=== PATIENT | female | born 1975 | race Caucasian/White ===

== ENCOUNTER 2016-12-05 04:56 | Emergency (ER) | payer MEDICARE, MEDICAID ==
[2016-12-05 05:47] LABS: AMORPHOUS SEDIMENT,URINE TRACE /HPF; APPEARANCE,URINE SLIGHTLY-CLOUDY; BILIRUBIN,URINE NEGATIVE (NEGATIVE); CALCIUM OXALATE CRYSTALS,URINE TOO NUMEROUS TO CNT /HPF; GLUCOSE, URINE NEGATIVE (NEGATIVE); KETONES,URINE NEGATIVE (NEGATIVE); LEUKOCYTE ESTERASE,URINE TRACE (NEGATIVE); NITRITE,URINE POSITIVE (NEGATIVE); PROTEIN,URINE NEGATIVE (NEGATIVE); URINE SPECIFIC GRAVITY 1.005
[2016-12-05] MEDS ORDERED: HYDROCODONE/ACETAMINOPHEN 5-325 MG TABLET PO ONE (06:23)
--- NOTE | 2016-12-05 06:25 | ER Document Report ---
ED General - General Chief Complaint: Urinary Frequency Stated Complaint: URINATION PROBLEMS Time Seen by Provider: 12/05/16 05:58 Mode of Arrival: Ambulatory Information source: Patient Notes: 41-year-old female presents with complaints of right flank pain burning on urination, patient denies any fevers or chills nausea vomiting or diarrhea. Has had 2 similar episodes in the past few months TRAVEL OUTSIDE OF THE [place] IN LAST 30 DAYS: No - HPI Onset: Yesterday Onset/Duration: Persistent Quality of pain: Burning, Sharp Severity: Mild Pain Level: 1 Associated symptoms: Other Exacerbated by: Other - Urination Relieved by: Denies Similar symptoms previously: Yes Recently seen / treated by doctor: Yes - Related Data Allergies/Adverse Reactions: carbamazepine [From Tegretol] Allergy (Unknown, Verified 03/21/14 10:56) ibuprofen [Ibuprofen] Allergy (Unknown, Verified 03/21/14 10:56) latex [Latex] Allergy (Unknown, Verified 03/21/14 10:56) tramadol [Tramadol] Allergy (Unknown, Verified 03/21/14 10:56) ketorolac tromethamine [From Toradol] Allergy (Verified 08/22/14 12:42) olanzapine [From Zyprexa] Allergy (Verified 03/21/14 10:56) Past Medical History - Social History Smoking Status: Never Smoker Cigarette use (# per day): No Chew tobacco use (# tins/day): No Smoking Education Provided: No Family History: Reviewed & Not Pertinent Patient has suicidal ideation: No Patient has homicidal ideation: No - Past Medical History Cardiac Medical History: Reports: Hx Hypercholesterolemia, Hx Hypertension Pulmonary Medical History: Reports: Hx COPD Neurological Medical History: Reports: Hx Migraine Renal/ Medical History: Denies: Hx Peritoneal Dialysis GI Medical History: Reports: Hx Gastroesophageal Reflux Disease Musculoskeltal Medical History: Reports Hx Arthritis, Reports Hx Fibromyalgia Psychiatric Medical History: Reports: Hx Anxiety, Hx Bipolar Disorder, Hx Depression, Hx Schizophrenia Past Surgical History: Reports: Hx Orthopedic Surgery - FX L ANKLE X2, L WRIST, ALMOST EVERY FINGER pain, Hx Tubal Ligation - Immunizations Hx Diphtheria, Pertussis, Tetanus Vaccination: Yes Review of Systems - Review of Systems Notes: REVIEW OF SYSTEMS: CONSTITUTIONAL : Denies fever, chills, or sweats. Denies recent illness. EENT: Denies eye, ear, throat, or mouth pain or symptoms. Denies nasal or sinus congestion or discharge. Denies throat, tongue, or mouth swelling or difficulty swallowing. CARDIOVASCULAR: Denies chest pain. Denies palpitations or racing or irregular heart beat. Denies ankle edema. RESPIRATORY: Denies cough, cold, or chest congestion. Denies shortness of breath, difficulty breathing, or wheezing. GASTROINTESTINAL: Admits to right flank pain GENITOURINARY: Admits to burning on urination FEMALE GENITOURINARY: Denies vaginal bleeding, heavy or abnormal periods, irregular periods. Denies vaginal discharge or odor. MUSCULOSKELETAL: Denies back or neck pain or stiffness. Denies joint pain or swelling. SKIN: Denies rash, lesions or sores. HEMATOLOGIC : Denies easy bruising or bleeding. LYMPHATIC: Denies swollen, enlarged glands. NEUROLOGICAL: Denies confusion or altered mental status. Denies passing out or loss of consciousness. Denies dizziness or lightheadedness. Denies headache. Denies weakness or paralysis or loss of use of either side. Denies problems with gait or speech. Denies sensory loss, numbness, or tingling. Denies seizures. PHYSICAL EXAMINATION: GENERAL: Well-appearing, well-nourished and in no acute distress. HEAD: Atraumatic, normocephalic. EYES: Pupils equal round and reactive to light, extraocular movements intact, conjunctiva are normal. ENT: Nares patent, oropharynx clear without exudates. Moist mucous membranes. NECK: Normal range of motion, supple without lymphadenopathy LUNGS: Breath sounds clear to auscultation bilaterally and equal. No wheezes rales or rhonchi. HEART: Regular rate and rhythm without murmurs ABDOMEN: Soft, nontender, nondistended abdomen. No guarding, no rebound. No masses appreciated. On the right CVA tenderness Female : deferred Musculoskeletal: Normal range of motion, no pitting or edema. No cyanosis. NEUROLOGICAL: Cranial nerves grossly intact. Normal speech, normal gait. Normal sensory, motor exams PSYCH: Normal mood, normal affect. SKIN: Warm, Dry, normal turgor, no rashes or lesions noted. PSYCHIATRIC: Denies anxiety or stress. Denies depression, suicidal ideation, or homicidal ideation. ALL OTHER SYSTEMS REVIEWED AND NEGATIVE. Dictation was performed using [employer] voice recognition software Physical Exam - Vital signs Vitals: Temp Pulse Resp BP Pulse Ox 98 F 86 16 152/92 H 95 12/05/16 04:59 12/05/16 04:59 12/05/16 04:59 12/05/16 04:59 12/05/16 04:59 Course - Re-evaluation Re-evalutation: 12/05/16 06:25 Patient has positive nitrates consistent with a urinary tract infection however she also does have calcium oxalate crystals in her urine, a CT has been ordered to rule out an infected stone 12/05/16 06:53 CT noted no acute abnormalities, patient will be treated for urinary tract infection and is otherwise well-appearing and stable. She will be given urology follow-up After performing a Medical Screening Examination, I estimate there is LOW risk for ACUTE APPENDICITIS, BOWEL OBSTRUCTION, ACUTE CHOLECYSTITIS, PERFORATED DIVERTICULITIS, INCARCERATED HERNIA, PANCREATITIS, PELVIC INFLAMMATORY DISEASE, PERFORATED ULCER, ECTOPIC , or TUBO-OVARIAN ABSCESS, thus I consider the discharge disposition reasonable. Also, there is no evidence or peritonitis , sepsis, or toxicity. I have reevaluated this patient multiple times and no significant life threatening changes are noted. The patient and I have discussed the diagnosis and risks, and we agree with discharging home with close follow-up with the understanding that symptoms and presentations can change. We also discussed returning to the Emergency Department immediately if new or worsening symptoms occur. We have discussed the symptoms which are most concerning (e.g., bloody stool, fever, changing or worsening pain, vomiting) that necessitate immediate return. - Vital Signs Vital signs: Temp Pulse Resp BP Pulse Ox 98 F 86 16 152/92 H 95 12/05/16 04:59 12/05/16 04:59 12/05/16 04:59 12/05/16 04:59 12/05/16 04:59 - Laboratory Laboratory results interpreted by me: 12/05/16 05:05 Urine Nitrite POSITIVE H Urine Urobilinogen 4.0 H Ur Leukocyte Esterase TRACE H - Diagnostic Test Radiology reviewed: Image reviewed, Reports reviewed - no acute abnormaltiy, result given to patient Discharge - Discharge Clinical Impression: Flank pain UTI (urinary tract infection) Qualifiers: Urinary tract infection type: acute cystitis Hematuria presence: without hematuria Qualified Code(s): N30.00 - Acute cystitis without hematuria Condition: Stable Disposition: HOME, SELF-CARE Instructions: Abdominal Pain ([facility]), Urinary Tract Infection ([facility]) Prescriptions: Ciprofloxacin HCl [Cipro 500 mg Tablet] 500 mg PO BID #20 tablet Phenazopyridine HCl [Pyridium 100 Mg Tablet] 100 mg PO Q8 #9 tablet Referrals: MICHAEL GALEANO MD [Primary Care Provider] - Follow up as needed TAYLOR MANNING MD [ACTIVE STAFF] - Follow up tomorrow
--- NOTE | 2016-12-05 06:50 | RADIOLOGY REPORT (SQ) ---
EXAM DESCRIPTION: CT LTD RENAL STONE PROTOCOL ON COMPLETED DATE/TIME: 12/05/2016 6:35 am REASON FOR STUDY: urinary frequency COMPARISON: 8.18.15 TECHNIQUE: CT scan of the abdomen and pelvis performed without intravenous or oral contrast. Images reviewed with lung, soft tissue, and bone windows. Reconstructed coronal and sagittal MPR images revi ewed. All images stored on PACS. All CT scanners at this facility use dose modulation, iterative reconstruction, and/or weight based d osing when appropriate to reduce radiation dose to as low as reasonably achievable (ALARA). [facility]: Dose Right [facility]: CareDose [facility]: Dose Right [facility]: Teradose 4D [facility]: Smart Advice Wallet RADIATION DOSE: 321 LIMITATIONS: None. FINDINGS: The the LOWER CHEST: No significant findings. No nodules or infiltrates. NON-CONTRASTED LIVER, SPLEEN, ADRENALS: Evaluation limited by lack of IV contrast. No identified sign ificant masses. PANCREAS: No masses. No peripancreatic inflammatory changes. GALLBLADDER: No identified stones by CT criteria. No inflammatory changes to suggest cholecystitis. RIGHT KIDNEY AND URETER: No suspicious masses. Assessment limited by lack of IV contrast. No signif icant calcifications. No hydronephrosis or hydroureter. LEFT KIDNEY AND URETER: No suspicious masses. Assessment limited by lack of IV contrast. No signifi cant calcifications. No hydronephrosis or hydroureter. AORTA AND RETROPERITONEUM: No aneurysm. No retroperitoneal masses or adenopathy. BOWEL AND PERITONEAL CAVITY: No obvious masses or inflammatory changes. No free fluid. Moderate colo cristy stool retention. APPENDIX: Normal. PELVIS, BLADDER, AND ABDOMINAL WALL:No abnormal masses. No free fluid. Bladder normal. BONES: Mild disc desiccation. OTHER: No other significant finding. IMPRESSION: No acute findings. TECHNICAL DOCUMENTATION: JOB ID: [id number] Quality ID # [id number]: Final reports with documentation of one or more dose reduction techniques (e.g., Au tomated exposure control, adjustment of the mA and/or kV according to patient size, use of iterative reconstruction technique) 2010 [employer]- All Rights Reserved
[2016-12-05 07:15] VITALS: BP 132/89
== END 2016-12-05 07:13 | disposition home or self-care (01) ==
LOC: ER 04:56
DX: N30.00 Acute cystitis without hematuria (principal); R10.9 Unspecified abdominal pain; R30.0 Dysuria; I10 Essential (primary) hypertension; J44.9 Chronic obstructive pulmonary disease, unspecified; Z88.6 Allergy status to analgesic agent; Z91.040 Latex allergy status; Z88.5 Allergy status to narcotic agent; Z88.8 Allergy status to other drugs, medicaments and biological substances
CPT/HCPCS: 99284; 81025; 81001; 76380; A9270

== ENCOUNTER → 2017-02-03 | Outpatient (CLI) | payer MEDICARE, MEDICAID ==
--- NOTE | 2017-02-03 15:47 | RADIOLOGY REPORT (SQ) ---
EXAM DESCRIPTION: T SPINE AP/LAT COMPLETED DATE/TIME: 02/03/2017 2:34 pm REASON FOR STUDY: PAIN IN THORACIC SPINE (M54.6) M54.6 PAIN IN THORACIC SPINE COMPARISON: None. NUMBER OF VIEWS: Two views. TECHNIQUE: AP and lateral radiographic images acquired of the thoracic spine. LIMITATIONS: None. FINDINGS: MINERALIZATION: Normal. ALIGNMENT: Normal. No scoliosis. VERTEBRAE: No fracture or bone lesion. Maintained height, normal segmentation. DISCS: No significant loss of height or significant narrowing. No large osteophytes. HARDWARE: None in the spine. MEDIASTINUM AND SOFT TISSUES: Normal heart size and aortic contour. No soft tissue abnormality. VISUALIZED LUNG SIMEON: Clear. OTHER: No other significant finding. IMPRESSION: NO SIGNIFICANT RADIOGRAPHIC FINDING IN THE THORACIC SPINE. TECHNICAL DOCUMENTATION: JOB ID: [id number] [employer]- All Rights Reserved
== END ==
LOC: RAD 14:08
PROVIDERS: ATTEND Family Medicine
DX: M54.6 Pain in thoracic spine (principal)
CPT/HCPCS: 72070

== ENCOUNTER 2017-10-07 14:11 | Emergency (ER) | payer MEDICARE, MEDICAID ==
[2017-10-07 14:53] LABS: ABSOLUTE BASOPHILS # (AUTO) 0.1 10^3/uL (0.0-0.2); ABSOLUTE EOSINOPHILS # (AUTO) 0.1 10^3/uL (0.0-0.6); ABSOLUTE LYMPHOCYTES (AUTO) 1.5 10^3/uL (0.5-4.7); ABSOLUTE MONOCYTES (AUTO) 0.4 10^3/uL (0.1-1.4); ABSOLUTE NEUT (AUTO) 5.5 10^3/uL (1.7-8.2); BASOPHILS % (AUTO) 0.8 % (0-2); EOSINOPHILS % (AUTO) 0.8 % (0-6); HEMOGLOBIN 13.6 g/dL (12.0-15.5); LYMPHOCYTES % (AUTO) 19.6 % (13-45); MEAN CORPUSCULAR HEMOGLOBIN 29.1 pg (27.0-33.4); MEAN CORPUSCULAR HGB CONC 33.9 g/dL (32.0-36.0); MEAN CORPUSCULAR VOLUME 86 fl (80-97); MONOCYTES % (AUTO) 5.9 % (3-13); PLATELET COUNT 282 10^3/uL (150-450); RED BLOOD COUNT 4.67 10^6/uL (3.72-5.28); RED CELL DISTRIBUTION WIDTH 14.1 % (11.5-14.0); SEGMENTED NEUTROPHILS % (AUTO) 72.9 % (42-78); TOTAL CELLS COUNTED % (AUTO) 100 %; WHITE BLOOD COUNT 7.5 10^3/uL (4.0-10.5)
[2017-10-07 15:04] LABS: ALANINE AMINOTRANSFERASE 18 U/L (9-52); ALKALINE PHOSPHATASE 72 U/L (38-126); ANION GAP 11 (5-19); ASPARTATE AMINO TRANSFERASE 16 U/L (14-36); BILIRUBIN,DIRECT 0.1 mg/dL (0.0-0.4); BILIRUBIN,TOTAL 0.4 mg/dL (0.2-1.3); BLOOD UREA NITROGEN 7 mg/dL (7-20); CALCIUM 9.8 mg/dL (8.4-10.2); CARBON DIOXIDE 28 mmol/L (22-30); CHLORIDE 104 mmol/L (98-107); GLUCOSE 104 mg/dL (75-110); TOTAL PROTEIN 6.7 g/dL (6.3-8.2)
--- NOTE | 2017-10-07 15:11 | EKG REPORT ---
SEVERITY:- ABNORMAL ECG - SINUS TACHYCARDIA CONSIDER ANTEROSEPTAL INFARCT NONSPECIFIC T ABNORMALITIES, ANT-LAT LEADS : Confirmed by: Ryan Serrano MD 07-Oct-2017 15:10:31
--- NOTE | 2017-10-07 15:32 | ER Document Report ---
ED Syncope and Near Syncope - General Chief Complaint: Syncope Stated Complaint: SYNCOPE Time Seen by Provider: 10/07/17 14:20 Notes: The patient is a 42-year-old female, past medical history bipolar, presents after she cannot remember the past 2 days. She thinks she had a syncopal episode this morning because the heard a thump in the bedroom. She was initially confused when EMS arrived, but she is back to baseline on exam. During my exam, she began to have mild right upper chest pressure. Patient denies headache, shortness of breath, nausea, vomiting, back pain, leg swelling , hemoptysis, OCP use, fevers, numbness, tingling or epistaxis. TRAVEL OUTSIDE OF THE [place] IN LAST 30 DAYS: No - Related Data Allergies/Adverse Reactions: carbamazepine [From Tegretol] Allergy (Unknown, Verified 03/21/14 10:56) ibuprofen [Ibuprofen] Allergy (Unknown, Verified 03/21/14 10:56) latex [Latex] Allergy (Unknown, Verified 03/21/14 10:56) tramadol [Tramadol] Allergy (Unknown, Verified 03/21/14 10:56) ketorolac tromethamine [From Toradol] Allergy (Verified 08/22/14 12:42) olanzapine [From Zyprexa] Allergy (Verified 03/21/14 10:56) Past Medical History - General Information source: Patient - Social History Smoking Status: Unknown if Ever Smoked Family History: Reviewed & Not Pertinent - Past Medical History Cardiac Medical History: Reports: Hx Hypercholesterolemia, Hx Hypertension Pulmonary Medical History: Reports: Hx COPD Neurological Medical History: Reports: Hx Migraine Renal/ Medical History: Denies: Hx Peritoneal Dialysis GI Medical History: Reports: Hx Gastroesophageal Reflux Disease Musculoskeltal Medical History: Reports Hx Arthritis, Reports Hx Fibromyalgia Psychiatric Medical History: Reports: Hx Anxiety, Hx Bipolar Disorder, Hx Depression, Hx Schizophrenia Past Surgical History: Reports: Hx Orthopedic Surgery - FX L ANKLE X2, L WRIST, ALMOST EVERY FINGER pain, Hx Tubal Ligation - Immunizations Hx Diphtheria, Pertussis, Tetanus Vaccination: Yes Review of Systems - Review of Systems Notes: REVIEW OF SYSTEMS: CONSTITUTIONAL: -fevers, -chills EENT: -eye pain, -difficulty swallowing, -nasal congestion CARDIOVASCULAR: +chest pain, +syncope. RESPIRATORY: -cough, -SOB GASTROINTESTINAL: -abdominal pain, -nausea, -vomiting, -diarrhea GENITOURINARY: -dysuria, -hematuria MUSCULOSKELETAL: -back pain, -neck pain SKIN: -rash or skin lesions. HEMATOLOGIC: -easy bruising or bleeding. LYMPHATIC: -swollen, enlarged glands. NEUROLOGICAL: -altered mental status or loss of consciousness, -headache, - neurologic symptoms PSYCHIATRIC: -anxiety, -depression. ALL OTHER SYSTEMS REVIEWED AND NEGATIVE. Physical Exam - Vital signs Vitals: Temp Resp Pulse Ox 98.7 F 26 H 97 10/07/17 15:29 10/07/17 15:29 10/07/17 15:29 - Notes Notes: PHYSICAL EXAMINATION: GENERAL: Well-appearing, well-nourished and in no acute distress. HEAD: Atraumatic, normocephalic. EYES: Pupils equal round and reactive to light, extraocular movements intact, sclera anicteric, conjunctiva are normal. ENT: nares patent, oropharynx clear without exudates. Moist mucous membranes. NECK: Normal range of motion, supple without lymphadenopathy LUNGS: Breath sounds clear to auscultation bilaterally and equal. No wheezes rales or rhonchi. HEART: Tachycardia, regular rhythm. ABDOMEN: Soft, nontender, normoactive bowel sounds. No guarding, no rebound. No masses appreciated. EXTREMITIES: Normal range of motion, no pitting or edema. No cyanosis. NEUROLOGICAL: Cranial nerves grossly intact. Normal speech, normal gait. Normal sensory and motor exams. PSYCH: Normal mood, normal affect. SKIN: Warm, Dry, normal turgor, no rashes or lesions noted. Course - Re-evaluation Re-evalutation: Patient appears well. With her tachycardia, mild tachypnea and syncope, she is low to moderate risk for PE. D-dimer was positive, but CTA did not show evidence of a PE. After IV fluids, her tachycardia resolved. Blood work is unremarkable and she is low risk for syncope using the [place] Syncope Rules. Instructed her to stay hydrated and follow-up with her primary care physician. Unsure if there is any seizure activity, as these episodes are unwitnessed, but gave her follow-up with neurology for further evaluation. No arrhythmias seen while she was on the monitor in the ER. Given very strict return precautions and she understands per - Vital Signs Vital signs: Temp Pulse Resp BP Pulse Ox 98.7 F 27 H 138/103 H 98 04/14/18 15:29 10/07/17 16:31 10/07/17 16:31 10/07/17 16:31 - Laboratory Result Diagrams: 10/07/17 14:35 10/07/17 14:35 Laboratory results interpreted by me: 10/07/17 10/07/17 14:35 14:35 RDW 14.1 H D-Dimer 0.66 H - Diagnostic Test Radiology reviewed: Image reviewed, Reports reviewed Radiology results interpreted by me: CTA Chest: No PE. - EKG Interpretation by Me EKG shows normal: Sinus rhythm, [place], Intervals, QRS Complexes, ST-T Waves Rate: Tachycardia Discharge - Discharge Clinical Impression: Syncope Qualifiers: Syncope type: unspecified Qualified Code(s): R55 - Syncope and collapse Condition: Stable Disposition: HOME, SELF-CARE Additional Instructions: SYNCOPAL EPISODE: Syncope (fainting or near-fainting) can occur from many different health problems. Or it can be a simple fainting spell requiring no treatment. It is safe for you to go home, but further evaluation will likely be necessary. Your work-up may include tests for internal bleeding, heart disease, medication problems, or near-strokes. Tests are not always required, however, depending on the nature of your problem. The warning signs of an impending faint include: dizziness, lightheadedness , nausea, hot flashes, tingling, and weakness. If this happens, lay down and put your feet up, then wait until all of these symptoms have passed before standing up again. If these episodes become recurrent, or if you develop chest pain, heart palpitations, mental confusion, blurred vision, or headache, then you should call the physician, or go to the emergency room. ALTERED MENTAL STATUS: An altered mental status is a change in the normal functioning of the brain. This alteration of function can range from minor decreased brain function with some forgetfulness and confusion to complete loss of consciousness and coma. There are many possible causes of an altered mental status and include brain injuries such as trauma or strokes, problems with oxygen supply to the brain, fever and infections of the brain and/or elsewhere in the body, metabolic abnormalities such as low or high blood sugar, overdoses or excessive medication ingestion, and mental and psychiatric illnesses. Sometimes the altered mental status resolves and a definite cause is not determined. If a cause for your altered mental status was found, it has likely been corrected. Your evaluation has not shown any condition that requires that you be admitted to the hospital. It is believed that you are safe to lelave and return to your home. If you have a return of your symptoms, you should return for re-evaluation. NORMAL EXAM AND WORKUP: At this time, your examination and workup show no significant abnormality. No significant abnormal physical findings were noted. All laboratory, EKG, and imaging (x-ray, CT scans, ultrasound) studies that were ordered show no significant abnormality. Although your examination and all studies that were ordered showed no significant abnormal finding, there are no examinations and no studies that are 100% accurate. There is always the possibility that some abnormality could exist and not be detected with physical examination or within the limits and capabilities of laboratory and other studies. You should return or follow up as you were instructed on your visit today for further evaluation if your symptoms do not resolve. FOLLOW-UP CARE: If you have been referred to a physician for follow-up care, call the physician s office for an appointment as you were instructed or within the next two days. If you experience worsening or a significant change in your symptoms, notify the physician immediately or return to the Emergency Department at any time for re-evaluation. Forms: Elevated Blood Pressure Referrals: MICHAEL GALEANO MD [Primary Care Provider] - Follow up as needed NESHA LAW MD [NO LOCAL MD] - Follow up as needed
[2017-10-07] MEDS: NORMAL SALINE 1000 ML 1,000 ML IV PRN ×2 (16:16→16:17)
[2017-10-07 16:25] LABS: URINE AMPHETAMINES SCREEN NEGATIVE; URINE BARBITURATES SCREEN NEGATIVE; URINE BENZODIAZEPINES SCREEN NEGATIVE; URINE COCAINE SCREEN NEGATIVE; URINE MARIJUANA (THC) SCREEN NEGATIVE; URINE METHADONE SCREEN NEGATIVE; URINE PHENCYCLIDINE SCREEN NEGATIVE
--- NOTE | 2017-10-07 16:34 | RADIOLOGY REPORT (SQ) ---
EXAM DESCRIPTION: CTA CHEST COMPLETED DATE/TIME: 10/07/2017 4:03 pm REASON FOR STUDY: tachycardia, syncope, +D-dimer COMPARISON: Chest film 02/28/2011 TECHNIQUE: CT scan of the chest performed using helical scanning technique with dynamic intravenous contrast injection. Images reviewed with lung, soft tissue and bone windows. Reconstructed coronal and sagittal MPR images reviewed. Additional 3 dimensional post-processing performed to develop Maximal Intensity Projection images (AR P). All images stored on PACS. All CT scanners at this facility use dose modulation, iterative reconstruction, and/or weight based d osing when appropriate to reduce radiation dose to as low as reasonably achievable (ALARA). [facility]: Dose Right [facility]: CareDose [facility]: Dose Right [facility]: Teradose 4D [facility]: MoVoxx CONTRAST TYPE AND DOSE: contrast/concentration: Isovue 370.00 mg/ml; Total Contrast Delivered: 64.0 ml; Total Saline Delivered: 105.0 ml Contrast bolus optimized for the pulmonary arteries and aorta. RENAL FUNCTION: Creatinine 0.6 RADIATION DOSE: CT Rad equipment meets quality standard of care and radiation dose reduction techniq ues were employed. CTDIvol: 13.2 - 16.6 mGy. DLP: 578 mGy-cm. . LIMITATIONS: None. FINDINGS: LUNGS AND PLEURA: Trace bilateral pleural effusions are present. No pneumothorax. No dense consolidation worrisome for pneumonia. No gross alveolar or interstitial edema. AORTA AND GREAT VESSELS: No aneurysm. Contrast bolus not optimized for the aorta. HEART: No pericardial effusion. No significant coronary artery calcifications. PULMONARY ARTERIES: No emboli visualized in the main pulmonary arteries or the segmental branches. HILAR AND MEDIASTINAL STRUCTURES: No identified masses or abnormal nodes. HARDWARE: None in the chest. UPPER ABDOMEN: No significant findings. Limited exam. THYROID AND OTHER SOFT TISSUES: On axial image 46, a 1 cm breast nodule is present. Diagnostic outpa tient mammography is recommended for followup. BONES: No acute or significant finding. 3D MIPS: Confirm above findings. OTHER: No other significant finding. IMPRESSION: No CT angio evidence of acute pulmonary emboli or acute thoracic aortic dissection. At its Trace bilateral pleural effusions. COMMENT: Quality ID # [id number]: Final reports with documentation of one or more dose reduction techniques (e.g., Automated exposure control, adjustment of the mA and/or kV according to patient size, use of iterative reconstruction technique) TECHNICAL DOCUMENTATION: JOB ID: [id number] [employer]- All Rights Reserved Reading location - IP/workstation name: [email or web address]
--- NOTE | 2017-10-07 17:40 | EKG REPORT ---
SEVERITY:- ABNORMAL ECG - SINUS TACHYCARDIA NONSPECIFIC T ABNORMALITIES, LATERAL LEADS : Confirmed by: Ryan Serrano MD 07-Oct-2017 17:40:38
[2017-10-07 18:03] VITALS: BP 140/82
== END 2017-10-07 18:14 | disposition home or self-care (01) ==
LOC: ER 14:11
DX: R55 Syncope and collapse (principal); R41.0 Disorientation, unspecified; R07.89 Other chest pain; R00.0 Tachycardia, unspecified; R06.82 Tachypnea, not elsewhere classified; R79.89 Other specified abnormal findings of blood chemistry
CPT/HCPCS: 93005; 99285; 96360; 36415; 85025; 81025; 80053; 84484; 80307; 85379; 71275; 93010; J7030

== ENCOUNTER 2017-10-13 13:20 | Emergency (ER) | payer MEDICARE, MEDICAID ==
[2017-10-13] MEDS ORDERED: NORMAL SALINE 1000 ML 1,000 ML IV ONE (14:22)
[2017-10-13] MEDS ORDERED: LORAZEPAM INJ 2 MG/1 ML VIAL IV ONE (14:22)
--- NOTE | 2017-10-13 14:23 | ER Document Report ---
ED General - General Chief Complaint: Probable Seizure Stated Complaint: WEAKNESS Time Seen by Provider: 10/13/17 13:33 Notes: 42-year-old female to the emergency department for altered mental status. Family member/significant other present when she had what appeared to be a seizure. Had 2 seizures prior to EMS transporting. No seizure-like activity observed by EMS. No medications given. Of note patient was taken Topamax for several years but recently stopped it about a week ago. Has had at least 3 seizure-like activities since stopping. Was seen on Monday for the same but was subsequently discharged. Patient denies any pain at this time. Denies any other symptoms at this time. TRAVEL OUTSIDE OF THE [place] IN LAST 30 DAYS: No - HPI Onset: Just prior to arrival - Related Data Allergies/Adverse Reactions: carbamazepine [From Tegretol] Allergy (Unknown, Verified 03/21/14 10:56) ibuprofen [Ibuprofen] Allergy (Unknown, Verified 03/21/14 10:56) latex [Latex] Allergy (Unknown, Verified 03/21/14 10:56) tramadol [Tramadol] Allergy (Unknown, Verified 03/21/14 10:56) ketorolac tromethamine [From Toradol] Allergy (Verified 08/22/14 12:42) olanzapine [From Zyprexa] Allergy (Verified 03/21/14 10:56) Home Medications: risperdone, paliperidone, benztropine, topamax, cymbalta, prilosec Past Medical History - General Information source: Patient - Social History Smoking Status: Current Some Day Smoker Cigarette use (# per day): Yes Chew tobacco use (# tins/day): No Frequency of alcohol use: None Drug Abuse: None Lives with: Family Family History: Reviewed & Not Pertinent Patient has suicidal ideation: No Patient has homicidal ideation: No - Past Medical History Cardiac Medical History: Reports: Hx Hypercholesterolemia, Hx Hypertension Pulmonary Medical History: Reports: Hx COPD Neurological Medical History: Reports: Hx Migraine Renal/ Medical History: Denies: Hx Peritoneal Dialysis GI Medical History: Reports: Hx Gastroesophageal Reflux Disease Musculoskeltal Medical History: Reports Hx Arthritis, Reports Hx Fibromyalgia Psychiatric Medical History: Reports: Hx Anxiety, Hx Bipolar Disorder, Hx Depression, Hx Schizophrenia Past Surgical History: Reports: Hx Orthopedic Surgery - FX L ANKLE X2, L WRIST, ALMOST EVERY FINGER pain, Hx Tubal Ligation - Immunizations Hx Diphtheria, Pertussis, Tetanus Vaccination: Yes Review of Systems - Review of Systems Constitutional: No symptoms reported EENT: No symptoms reported Cardiovascular: No symptoms reported Respiratory: No symptoms reported Gastrointestinal: No symptoms reported Genitourinary: No symptoms reported Female Genitourinary: No symptoms reported Musculoskeletal: No symptoms reported Skin: No symptoms reported Hematologic/Lymphatic: No symptoms reported Neurological/Psychological: Confusion, Seizure, Headaches Physical Exam - Vital signs Vitals: Temp 97.8 F 10/13/17 13:20 Interpretation: Tachycardic - General General appearance: Appears well, Alert - HEENT Head: Normocephalic, Atraumatic Eyes: Normal Pupils: PERRL - Respiratory Respiratory status: No respiratory distress Chest status: Nontender Breath sounds: Normal Chest palpation: Normal - Cardiovascular Rhythm: Tachycardia Heart sounds: Normal auscultation Murmur: No - Abdominal Inspection: Normal Distension: No distension Bowel sounds: Normal Tenderness: Nontender Organomegaly: No organomegaly - Back Back: Normal, Nontender - Extremities General upper extremity: Normal inspection, Nontender, Normal color, Normal ROM , Normal temperature General lower extremity: Normal inspection, Nontender, Normal color, Normal ROM , Normal temperature, Normal weight bearing. No: Mariana's sign - Neurological Neuro grossly intact: Yes Cognition: Normal Orientation: AAOx4 [place] Coma Scale Eye Opening: Spontaneous Leslie Coma Scale Verbal: Oriented [place] Coma Scale Motor: Obeys Commands [place] Coma Scale Total: 15 Speech: Normal Motor strength normal: LUE, RUE, LLE, RLE Sensory: Normal - Psychological Associated symptoms: Normal affect, Normal mood - Skin Skin Temperature: Warm Skin Moisture: Dry Skin Color: Normal Course - Re-evaluation Re-evalutation: 10/13/17 14:38 Patient was seen on Monday and had conference a workup. More likely patient is suffering from some withdrawal seizures from stopping Topamax suddenly. Apparently patient was on Topamax for years. Will give her some Ativan right here. Will give some fluids, check head CT and reassess. 10/13/17 16:14 At this time patient's labs are fairly unremarkable. More likely did have a seizure. Have given her Topamax and Ativan here. Will prescribe her the same. I have encouraged her to follow back up with her regular doctor. Do not stop taking seizure medications (that was being used for her chronic migraines) abruptly as this can result in seizures. Family members have been educated as well. Will advise that she start taking the Topamax 50 mg twice a day and will cover her with some Ativan for the next 2 days as well. No drinking, no drug use, no driving. - Vital Signs Vital signs: Temp Pulse Resp BP Pulse Ox 97.8 F 20 109/94 H 98 10/13/17 13:20 10/13/17 13:29 10/13/17 13:28 10/13/17 13:29 - Laboratory Result Diagrams: 10/13/17 13:20 10/13/17 13:20 Laboratory results interpreted by me: 10/13/17 10/13/17 13:20 13:20 RDW 14.3 H Sodium 145.1 H Chloride 108 H Glucose 119 H Discharge - Discharge Clinical Impression: Seizure concurrent with and due to sedative withdrawal Condition: Good Disposition: HOME, SELF-CARE Instructions: New Seizure ([facility]) Additional Instructions: More than likely your symptoms of the result of stopping the Topamax to abruptly. Please continue with the Topamax and other medications as prescribed. Please follow-up with your regular doctor as soon as possible for repeat evaluation and treatment. No driving. No operating machinery. No alcohol or illicit drug use including marijuana. Prescriptions: Lorazepam [Ativan 1 mg Tablet] 1 mg PO BID 2 Days #4 tab Topiramate [Topamax] 50 mg PO BID 30 Days #60 tablet Referrals: MICHAEL GALEANO MD [Primary Care Provider] - Follow up as needed
[2017-10-13 14:35] LABS: ABSOLUTE BASOPHILS # (AUTO) 0.1 10^3/uL (0.0-0.2); ABSOLUTE EOSINOPHILS # (AUTO) 0.1 10^3/uL (0.0-0.6); ABSOLUTE LYMPHOCYTES (AUTO) 2.3 10^3/uL (0.5-4.7); ABSOLUTE MONOCYTES (AUTO) 0.4 10^3/uL (0.1-1.4); ABSOLUTE NEUT (AUTO) 5.6 10^3/uL (1.7-8.2); BASOPHILS % (AUTO) 0.9 % (0-2); EOSINOPHILS % (AUTO) 1.3 % (0-6); HEMATOCRIT 39.3 % (36.0-47.0); HEMOGLOBIN 13.2 g/dL (12.0-15.5); LYMPHOCYTES % (AUTO) 26.6 % (13-45); MEAN CORPUSCULAR HEMOGLOBIN 29.2 pg (27.0-33.4); MEAN CORPUSCULAR HGB CONC 33.6 g/dL (32.0-36.0); MEAN CORPUSCULAR VOLUME 87 fl (80-97); MONOCYTES % (AUTO) 5.2 % (3-13); PLATELET COUNT 312 10^3/uL (150-450); RED BLOOD COUNT 4.52 10^6/uL (3.72-5.28); RED CELL DISTRIBUTION WIDTH 14.3 % (11.5-14.0); TOTAL CELLS COUNTED % (AUTO) 100 %; WHITE BLOOD COUNT 8.6 10^3/uL (4.0-10.5)
[2017-10-13 14:43] LABS: ALANINE AMINOTRANSFERASE 21 U/L (9-52); ALBUMIN 3.8 g/dL (3.5-5.0); ALKALINE PHOSPHATASE 73 U/L (38-126); ANION GAP 10 (5-19); ASPARTATE AMINO TRANSFERASE 15 U/L (14-36); BILIRUBIN,DIRECT 0.3 mg/dL (0.0-0.4); BILIRUBIN,TOTAL 0.4 mg/dL (0.2-1.3); BLOOD UREA NITROGEN 7 mg/dL (7-20); CALCIUM 9.9 mg/dL (8.4-10.2); CARBON DIOXIDE 27 mmol/L (22-30); CHLORIDE 108 mmol/L (98-107); GLUCOSE 119 mg/dL (75-110); POTASSIUM 4.3 mmol/L (3.6-5.0); SODIUM 145.1 mmol/L (137-145); TOTAL PROTEIN 6.8 g/dL (6.3-8.2)
--- NOTE | 2017-10-13 14:59 | RADIOLOGY REPORT (SQ) ---
EXAM DESCRIPTION: CT HEAD WITHOUT COMPLETED DATE/TIME: 10/13/2017 2:50 pm REASON FOR STUDY: altered mental status COMPARISON: 02/10/2015. TECHNIQUE: Axial images acquired through the brain without intravenous contrast. Images reviewed wi th bone, brain and subdural windows. Additional sagittal and coronal reconstructions were generated. Images stored on PACS. All CT scanners at this facility use dose modulation, iterative reconstruction, and/or weight based d osing when appropriate to reduce radiation dose to as low as reasonably achievable (ALARA). [facility]: Dose Right [facility]: CareDose [facility]: Dose Right [facility]: Teradose 4D [facility]: SR Labs RADIATION DOSE: CT Rad equipment meets quality standard of care and radiation dose reduction techniq ues were employed. CTDIvol: 53.2 mGy. DLP: 991 mGy-cm. mGy. LIMITATIONS: None. FINDINGS: VENTRICLES: Normal size and contour. CEREBRUM: No masses. No hemorrhage. No midline shift. No evidence for acute infarction. Normal gra y/white matter differentiation. No areas of low density in the white matter. CEREBELLUM: No masses. No hemorrhage. No alteration of density. No evidence for acute infarction. EXTRAAXIAL SPACES: No fluid collections. No masses. ORBITS AND GLOBE: No intra- or extraconal masses. Normal contour of globe without masses. CALVARIUM: No fracture. PARANASAL SINUSES: No fluid or mucosal thickening. SOFT TISSUES: No mass or hematoma. OTHER: No other significant finding. IMPRESSION: NORMAL BRAIN CT WITHOUT CONTRAST. EVIDENCE OF ACUTE STROKE: NO. COMMENT: Quality ID # [id number]: Final reports with documentation of one or more dose reduction techniques (e.g., Automated exposure control, adjustment of the mA and/or kV according to patient size, use of iterative reconstruction technique) TECHNICAL DOCUMENTATION: JOB ID: [id number] [employer]- All Rights Reserved Reading location - IP/workstation name: [email or web address]
[2017-10-13 15:35] LABS: APPEARANCE,URINE CLEAR; BILIRUBIN,URINE NEGATIVE (NEGATIVE); COLOR,URINE YELLOW; GLUCOSE, URINE NEGATIVE (NEGATIVE); KETONES,URINE NEGATIVE (NEGATIVE); LEUKOCYTE ESTERASE,URINE NEGATIVE (NEGATIVE); NITRITE,URINE NEGATIVE (NEGATIVE); PROTEIN,URINE NEGATIVE (NEGATIVE); URINE SPECIFIC GRAVITY 1.006; UROBILINOGEN,URINE NEGATIVE mg/dL (<2.0)
[2017-10-13 15:48] LABS: URINE AMPHETAMINES SCREEN NEGATIVE; URINE BARBITURATES SCREEN NEGATIVE; URINE BENZODIAZEPINES SCREEN NEGATIVE; URINE COCAINE SCREEN NEGATIVE; URINE MARIJUANA (THC) SCREEN NEGATIVE; URINE METHADONE SCREEN NEGATIVE; URINE PHENCYCLIDINE SCREEN NEGATIVE
[2017-10-13] MEDS ORDERED: ACETAMINOPHEN 325 MG TABLET PO ONE (16:04)
[2017-10-13] MEDS ORDERED: TOPIRAMATE 25 MG TABLET PO ONE (16:05)
[2017-10-13] MEDS ORDERED: LORAZEPAM 1 MG TABLET PO ONE (16:31)
[2017-10-13 17:08] VITALS: BP 148/104
--- NOTE | 2017-10-13 21:26 | EKG REPORT ---
SEVERITY:- NORMAL ECG - SINUS RHYTHM : Confirmed by: Trang Miller 13-Oct-2017 21:26:06
== END 2017-10-13 16:48 | disposition home or self-care (01) ==
LOC: ER 13:20
DX: R56.9 Unspecified convulsions (principal); F13.239 Sedative, hypnotic or anxiolytic dependence with withdrawal, unspecified; R41.82 Altered mental status, unspecified; F17.210 Nicotine dependence, cigarettes, uncomplicated; E78.00 Pure hypercholesterolemia, unspecified; I10 Essential (primary) hypertension; J44.9 Chronic obstructive pulmonary disease, unspecified; Z91.040 Latex allergy status; Z88.6 Allergy status to analgesic agent; Z98.51 Tubal ligation status
CPT/HCPCS: 93005; 99285; 96361; 96374; 36415; 85025; 80053; 81001; 80307; 70450; 93010; A9270 ×3; J2060; J7030; J3490

== ENCOUNTER → 2017-11-03 | Outpatient (CLI) | payer MEDICARE, MEDICAID ==
--- NOTE | 2017-11-03 13:10 | RADIOLOGY REPORT (SQ) ---
EXAM DESCRIPTION: MRI CERVICAL SPINE WITHOUT COMPLETED DATE/TIME: 11/03/2017 12:40 pm REASON FOR STUDY: CERVICAL RADICULOPATHY (M54.12) M54.12 RADICULOPATHY, CERVICAL REGION COMPARISON: None. TECHNIQUE: Sagittal and Axial imaging includes T1, T2, STIR and gradient echo sequences. LIMITATIONS: Motion. FINDINGS: ALIGNMENT: Normal. VERTEBRAE: Intact. BONE MARROW: Normal. No marrow replacement or reactive changes. DISCS: Desiccation multiple levels. Disc space narrowing C5-6. HARDWARE: None in the spine. CORD AND BASE OF BRAIN: Normal in size and signal intensity. SOFT TISSUES: No soft tissue masses. C1-C2: No significant spinal stenosis. C2-C3: No significant spinal stenosis or exit foraminal stenosis. C3-C4: Disc bulge. Minimal narrowing of the spinal canal. C4-C5: Disc bulge. Minimal narrowing of the spinal canal. C5-C6: Mild spinal stenosis due to disc osteophyte complex. Moderate right and severe left neural fo raminal narrowing. C6-C7: No significant spinal stenosis or exit foraminal stenosis. C7-T1: No significant spinal stenosis or exit foraminal stenosis. UPPER THORACIC: Incompletely imaged. No significant spinal stenosis or exit foraminal stenosis. OTHER: No other significant finding. IMPRESSION: Mild spinal stenosis. Central disc herniation C5-6. TECHNICAL DOCUMENTATION: JOB ID: [id number]- All Rights Reserved Reading location - IP/workstation name: Unknown
== END ==
LOC: RAD 11:28
PROVIDERS: ATTEND Family Medicine
DX: M54.12 Radiculopathy, cervical region (principal); M48.02 Spinal stenosis, cervical region; M50.222 Other cervical disc displacement at C5-C6 level
CPT/HCPCS: 72141

== ENCOUNTER 2018-03-06 12:36 | Emergency (ER) | payer MEDICARE, MEDICAID | END 2018-03-06 13:56 | disposition left against medical advice (07) | LOC: ER 12:36 | DX: Z53.21 Procedure and treatment not carried out due to patient leaving prior to being seen by health care provider (principal); M79.89 Other specified soft tissue disorders ==

== ENCOUNTER → 2018-12-13 | Outpatient (CLI) | payer MEDICARE, MEDICAID ==
--- NOTE | 2018-12-13 14:17 | RADIOLOGY REPORT (SQ) ---
EXAM DESCRIPTION: NM HIDA SCAN WITH CCK COMPLETED DATE/TIME: 12/13/2018 1:47 pm REASON FOR STUDY: R10.11 RIGHT UPPER QUADRANT PAIN R10.11 RIGHT UPPER QUADRANT PAIN COMPARISON: None. RADIONUCLIDE AND DOSE: DOSAGE RADIONUCLIDE: 5 millicuries Tc99m Mebrofenin. DOSAGE CCK: 1.7 micrograms. DOSAGE MORPHINE: Not required. The route of agent administration: Intravenous TECHNIQUE: Serial imaging right upper quadrant up to 60 minutes following injection of radionuclide. CCK injected after gallbladder visualized. LIMITATIONS: None. FINDINGS: LIVER: Normal visualization without areas of photopenia. INTRAHEPATIC BILE DUCTS: Normal size and no delay in visualization. COMMON BILE DUCT: Normal without dilatation. GALLBLADDER: Normal visualization. Calculated ejection fraction of 64%. Normal range is greater th an 35%. PHYSICAL RESPONSE: Patients presenting complaint was reproduced. OTHER: No other significant finding. IMPRESSION: Normal gallbladder ejection fraction of 64%. Patient's symptoms were reproduced with th e CCK administration. TECHNICAL DOCUMENTATION: JOB ID: [id number] [employer]- All Rights Reserved Reading location - IP/workstation name: [email or web address]
== END ==
LOC: RAD 11:24
PROVIDERS: ATTEND Nurse Practitioner Primary Care
DX: R10.11 Right upper quadrant pain (principal)
CPT/HCPCS: 78227; J2805; A9537; Q9969

== ENCOUNTER → 2019-05-10 | Outpatient (CLI) | payer MEDICARE, MEDICAID ==
[2019-05-10 11:56] LABS: ABSOLUTE BASOPHILS # (AUTO) 0.1 10^3/uL (0.0-0.2); ABSOLUTE EOSINOPHILS # (AUTO) 0.2 10^3/uL (0.0-0.6); ABSOLUTE LYMPHOCYTES (AUTO) 3.1 10^3/uL (0.5-4.7); ABSOLUTE MONOCYTES (AUTO) 0.8 10^3/uL (0.1-1.4); ABSOLUTE NEUT (AUTO) 4.8 10^3/uL (1.7-8.2); BASOPHILS % (AUTO) 0.6 % (0-2); EOSINOPHILS % (AUTO) 2.1 % (0-6); HEMATOCRIT 45.1 % (36.0-47.0); HEMOGLOBIN 15.3 g/dL (12.0-15.5); LYMPHOCYTES % (AUTO) 34.4 % (13-45); MEAN CORPUSCULAR HEMOGLOBIN 30.6 pg (27.0-33.4); MEAN CORPUSCULAR HGB CONC 33.9 g/dL (32.0-36.0); MEAN CORPUSCULAR VOLUME 90 fl (80-97); MONOCYTES % (AUTO) 8.9 % (3-13); PLATELET COUNT 218 10^3/uL (150-450); RED BLOOD COUNT 4.99 10^6/uL (3.72-5.28); RED CELL DISTRIBUTION WIDTH 13.4 % (11.5-14.0); TOTAL CELLS COUNTED % (AUTO) 100 %; WHITE BLOOD COUNT 8.9 10^3/uL (4.0-10.5)
[2019-05-10 12:20] LABS: ALBUMIN 3.9 g/dL (3.5-5.0); ALKALINE PHOSPHATASE 62 U/L (38-126); ANION GAP 11 (5-19); ASPARTATE AMINO TRANSFERASE 22 U/L (14-36); BILIRUBIN,DIRECT 0.2 mg/dL (0.0-0.4); BILIRUBIN,TOTAL 0.3 mg/dL (0.2-1.3); BLOOD UREA NITROGEN 8 mg/dL (7-20); CALCIUM 9.8 mg/dL (8.4-10.2); CARBON DIOXIDE 20 mmol/L (22-30); CHLORIDE 115 mmol/L (98-107); GLUCOSE 123 mg/dL (75-110); POTASSIUM 3.8 mmol/L (3.6-5.0); TOTAL PROTEIN 6.8 g/dL (6.3-8.2)
== END ==
LOC: LAB 11:41
PROVIDERS: ATTEND Specialist/Technologist Athletic Trainer
DX: I10 Essential (primary) hypertension (principal)
CPT/HCPCS: 36415; 80053; 85025

== ENCOUNTER → 2019-08-07 | Outpatient (CLI) | payer MEDICARE, MEDICAID ==
[2019-08-07 10:51] LABS: ABSOLUTE BASOPHILS # (AUTO) 0.1 10^3/uL (0.0-0.2); ABSOLUTE EOSINOPHILS # (AUTO) 0.2 10^3/uL (0.0-0.6); ABSOLUTE LYMPHOCYTES (AUTO) 3.1 10^3/uL (0.5-4.7); ABSOLUTE MONOCYTES (AUTO) 0.6 10^3/uL (0.1-1.4); ABSOLUTE NEUT (AUTO) 4.9 10^3/uL (1.7-8.2); BASOPHILS % (AUTO) 0.7 % (0-2); EOSINOPHILS % (AUTO) 2.5 % (0-6); HEMATOCRIT 39.1 % (36.0-47.0); HEMOGLOBIN 13.5 g/dL (12.0-15.5); LYMPHOCYTES % (AUTO) 34.9 % (13-45); MEAN CORPUSCULAR HEMOGLOBIN 32.1 pg (27.0-33.4); MEAN CORPUSCULAR HGB CONC 34.4 g/dL (32.0-36.0); MEAN CORPUSCULAR VOLUME 93 fl (80-97); MONOCYTES % (AUTO) 7.2 % (3-13); PLATELET COUNT 329 10^3/uL (150-450); RED CELL DISTRIBUTION WIDTH 15.1 % (11.5-14.0); SEGMENTED NEUTROPHILS % (AUTO) 54.7 % (42-78); TOTAL CELLS COUNTED % (AUTO) 100 %; WHITE BLOOD COUNT 8.9 10^3/uL (4.0-10.5)
[2019-08-07 11:11] LABS: ALBUMIN 3.6 g/dL (3.5-5.0); ALKALINE PHOSPHATASE 51 U/L (38-126); ANION GAP 7 (5-19); ASPARTATE AMINO TRANSFERASE 17 U/L (14-36); BILIRUBIN,TOTAL 0.2 mg/dL (0.2-1.3); BLOOD UREA NITROGEN 8 mg/dL (7-20); CALCIUM 9.4 mg/dL (8.4-10.2); CARBON DIOXIDE 25 mmol/L (22-30); CHLORIDE 106 mmol/L (98-107); GLUCOSE 88 mg/dL (75-110)
== END ==
LOC: OD 10:01
PROVIDERS: ATTEND Orthopaedic Surgery Hand Surgery
DX: I10 Essential (primary) hypertension (principal)
CPT/HCPCS: 36415; 80053; 85025

== ENCOUNTER → 2019-12-26 | Outpatient (CLI) | payer MEDICARE, MEDICAID ==
[2019-12-26 14:18] LABS: ABSOLUTE EOSINOPHILS # (AUTO) 0.3 10^3/uL (0.0-0.6); ABSOLUTE LYMPHOCYTES (AUTO) 3.3 10^3/uL (0.5-4.7); ABSOLUTE MONOCYTES (AUTO) 0.7 10^3/uL (0.1-1.4); ABSOLUTE NEUT (AUTO) 5.9 10^3/uL (1.7-8.2); BASOPHILS % (AUTO) 0.4 % (0-2); EOSINOPHILS % (AUTO) 2.7 % (0-6); HEMATOCRIT 39.8 % (36.0-47.0); HEMOGLOBIN 13.8 g/dL (12.0-15.5); LYMPHOCYTES % (AUTO) 32.1 % (13-45); MEAN CORPUSCULAR HEMOGLOBIN 31.4 pg (27.0-33.4); MEAN CORPUSCULAR HGB CONC 34.6 g/dL (32.0-36.0); MEAN CORPUSCULAR VOLUME 91 fl (80-97); PLATELET COUNT 333 10^3/uL (150-450); RED BLOOD COUNT 4.39 10^6/uL (3.72-5.28); RED CELL DISTRIBUTION WIDTH 12.9 % (11.5-14.0); SEGMENTED NEUTROPHILS % (AUTO) 57.8 % (42-78); TOTAL CELLS COUNTED % (AUTO) 100 %; WHITE BLOOD COUNT 10.2 10^3/uL (4.0-10.5)
[2019-12-26 14:21] LABS: APPEARANCE,URINE SLIGHTLY-CLOUDY; BILIRUBIN,URINE NEGATIVE (NEGATIVE); COLOR,URINE STRAW; GLUCOSE, URINE NEGATIVE (NEGATIVE); KETONES,URINE NEGATIVE (NEGATIVE); LEUKOCYTE ESTERASE,URINE NEGATIVE (NEGATIVE); NITRITE,URINE NEGATIVE (NEGATIVE); PROTEIN,URINE NEGATIVE (NEGATIVE); URINE SPECIFIC GRAVITY 1.005; UROBILINOGEN,URINE NEGATIVE mg/dL (<2.0)
[2019-12-26 14:39] LABS: ALBUMIN 4.5 g/dL (3.5-5.0); ALKALINE PHOSPHATASE 78 U/L (38-126); ANION GAP 8 (5-19); ASPARTATE AMINO TRANSFERASE 19 U/L (14-36); BILIRUBIN,TOTAL 0.3 mg/dL (0.2-1.3); BLOOD UREA NITROGEN 11 mg/dL (7-20); CARBON DIOXIDE 23 mmol/L (22-30); CHLORIDE 106 mmol/L (98-107); GLUCOSE 110 mg/dL (75-110); POTASSIUM 4.9 mmol/L (3.6-5.0); TOTAL PROTEIN 7.3 g/dL (6.3-8.2); TRIGLYCERIDES 398 mg/dL (<150)
[2019-12-26 14:50] LABS: DIRECT LDL 209 mg/dL (<100)
[2019-12-26 14:51] LABS: VLDL CHOLESTEROL 79.6 mg/dL (10-31)
== END ==
LOC: OD 13:34
PROVIDERS: ATTEND Nurse Practitioner Psychiatric/Mental Health
DX: F25.0 Schizoaffective disorder, bipolar type (principal)
CPT/HCPCS: 36415; 80053; 80061; 81005; 82306; 83036; 84443; 85025

== ENCOUNTER 2020-05-28 07:43 | Day surgery (SDC) | payer MEDICARE, MEDICAID ==
[2020-05-25 13:15] LABS: HEMATOCRIT 41.2 % (36.0-47.0); HEMOGLOBIN 13.9 g/dL (12.0-15.5); MEAN CORPUSCULAR HEMOGLOBIN 29.6 pg (27.0-33.4); MEAN CORPUSCULAR HGB CONC 33.8 g/dL (32.0-36.0); MEAN CORPUSCULAR VOLUME 88 fl (80-97); PLATELET COUNT 492 10^3/uL (150-450); RED CELL DISTRIBUTION WIDTH 13.8 % (11.5-14.0); WHITE BLOOD COUNT 10.6 10^3/uL (4.0-10.5)
[2020-05-25 13:16] LABS: APPEARANCE,URINE SLIGHTLY-CLOUDY; BILIRUBIN,URINE NEGATIVE (NEGATIVE); COLOR,URINE YELLOW; GLUCOSE, URINE NEGATIVE (NEGATIVE); KETONES,URINE NEGATIVE (NEGATIVE); LEUKOCYTE ESTERASE,URINE LARGE (NEGATIVE); NITRITE,URINE POSITIVE (NEGATIVE); PROTEIN,URINE NEGATIVE (NEGATIVE); URINE SPECIFIC GRAVITY 1.009; UROBILINOGEN,URINE NEGATIVE mg/dL (<2.0)
[2020-05-25 13:36] LABS: ALBUMIN 4.3 g/dL (3.5-5.0); ALKALINE PHOSPHATASE 106 U/L (38-126); ANION GAP 10 (5-19); ASPARTATE AMINO TRANSFERASE 16 U/L (14-36); BILIRUBIN,DIRECT 0.2 mg/dL (0.0-0.4); BILIRUBIN,TOTAL 0.5 mg/dL (0.2-1.3); BLOOD UREA NITROGEN 8 mg/dL (7-20); CALCIUM 10.4 mg/dL (8.4-10.2); CARBON DIOXIDE 24 mmol/L (22-30); CHLORIDE 105 mmol/L (98-107); GLUCOSE 113 mg/dL (75-110); POTASSIUM 4.4 mmol/L (3.6-5.0); TOTAL PROTEIN 7.7 g/dL (6.3-8.2)
--- NOTE | 2020-05-25 14:09 | EKG REPORT ---
SEVERITY:- ABNORMAL ECG - SINUS TACHYCARDIA LEFT ATRIAL ABNORMALITY LEFT VENTRICULAR HYPERTROPHY : Confirmed by: Dontae Talavera MD 25-May-2020 14:08:58
--- NOTE | 2020-05-26 12:34 | RADIOLOGY REPORT (SQ) ---
EXAM DESCRIPTION: CHEST 2 VIEWS IMAGES COMPLETED DATE/TIME: 05/26/2020 11:42 am REASON FOR STUDY: PRE OP COMPARISON: 2010 EXAM PARAMETERS: NUMBER OF VIEWS: two views TECHNIQUE: Digital Frontal and Lateral radiographic views of the chest acquired. RADIATION DOSE: NA LIMITATIONS: none FINDINGS: LUNGS AND PLEURA: No opacities, masses or pneumothorax. No pleural effusion. MEDIASTINUM AND HILAR STRUCTURES: No masses or contour abnormalities. HEART AND VASCULAR STRUCTURES: Heart normal size. No evidence for failure. BONES: No acute findings. HARDWARE: None in the chest. OTHER: No other significant finding. IMPRESSION: NO ACUTE RADIOGRAPHIC FINDING IN THE CHEST. TECHNICAL DOCUMENTATION: JOB ID: [id number] [employer]- All Rights Reserved Reading location - IP/workstation name: [email or web address]
[~2020-05-28 07:43] MED LIST: CEFAZOLIN 1 GM/D5W RTU 1 GM/50 ML RTUPB IV PRN
[2020-05-28] MEDS ORDERED: CEFAZOLIN 1 GM/D5W RTU 1 GM/50 ML RTUPB IV ONE (08:24)
[2020-05-28] MEDS ORDERED: ESTROGENS,CONJUGATED 0.625 MG/1 GM 30 GM TUBE PV ONE (10:00)
[2020-05-28] MEDS ORDERED: LIDOCAINE 2% INJ-PF (20 MG/ML) 10 ML AMPUL ONE (10:29)
[2020-05-28] MEDS ORDERED: MIDAZOLAM 2 MG/2 ML INJ ONE (10:29)
[2020-05-28] MEDS ORDERED: FENTANYL CITRATE INJ/PF 100 MCG/2 ML AMPUL ONE (10:29)
[2020-05-28] MEDS ORDERED: ONDANSETRON HCL INJ/PF 4 MG/2 ML SDV ONE (10:30)
[2020-05-28] MEDS ORDERED: HYDROMORPHONE HCL INJ/PF 2 MG/ML AMPULE ONE (10:30)
[2020-05-28] MEDS ORDERED: PROPOFOL INJ 200 MG/20 ML VIAL IV ONE (10:30)
[2020-05-28] MEDS ORDERED: DEXAMETHASONE SOD PHOSPHATE INJ 4 MG/1 ML VIAL ONE (10:30)
[2020-05-28] MEDS ORDERED: BUPIVACAINE HCL 0.25% /EPINEPHRINE INJ/PF 30 ML SDV ONE (10:44)
[2020-05-28] MEDS ORDERED: ACETAMINOPHEN 325 MG TABLET PO PRN (13:16)
[2020-05-28] MEDS ORDERED: ACETAMINOPHEN 1,000 MG/100 ML RTUPB IV PRN (13:16)
[2020-05-28] MEDS ORDERED: PROMETHAZINE HCL INJ 25 MG/1 ML VIAL IV PRN (13:16)
[2020-05-28] MEDS ORDERED: OXYCODONE-ACETAMINOPHEN 5-325 MG TABLET PO PRN ×2 (13:16)
[2020-05-28] MEDS ORDERED: RINGERS SOLUTION,LACTATED 1,000 ML IV PRN (13:16)
[2020-05-28] MEDS ORDERED: MORPHINE SULFATE 10 MG/ML INJ IV PRN (13:16)
[2020-05-28] MEDS ORDERED: SIMETHICONE 80 MG TAB.CHEW PO PRN (13:16)
[2020-05-28] MEDS ORDERED: CEFTRIAXONE INJ 1000 MG VIAL IV SCH (13:30)
--- NOTE | 2020-05-28 13:56 | Operative Report ---
Operative Report DATE OF SURGERY: 05/28/20 PREOPERATIVE DIAGNOSIS: complete uterovaginal prolapse, anterior prolapse, stre ss urinary incontenence POSTOPERATIVE DIAGNOSIS: same OPERATION: transvaginal hysterectomy, uterosacral suspension, anterior repair and shameka sling placement SURGEON: MADIE CUNHA 1ST SILK SCREEN OPERATOR: ANNALEE DENNEY 2ND Jewelry Dipper: ED SAEED ANESTHESIA: GA TISSUE REMOVED OR ALTERED: uterus, cervix COMPLICATIONS: none ESTIMATED BLOOD LOSS: 100 cc INTRAOPERATIVE FINDINGS: postmenopausal uterus, grade 3 anterior uterovaginal prolapse PROCEDURE: Patient was taken to the operating room prepared and draped in normal sterile fashion a dorsal lithotomy position in [facility]. Placed in the posterior fourchette retractor was placed in the anterior fourchette. Cervix was grasped with a triple tooth tenaculum and injected circumferentially with 10 cc of lidocaine with epi. The cervix was then scored with a 10 blade ventral fashion so was dissected away from the uterus using Alvarenga's. The anterior cul-de-sac was entered sharply with the Mayos and the weighted speculum was replaced with a long weighted speculum. Anterior cul-de-sac was then also entered sharply. The uterosacral ligaments were then clamped and cut with Oscar clamps and Alvarenga scissors these pedicles were tied off with 2-0 Vicryl tagged with hemostats. The rest of the uterine artery was then ligated on both sides using the LigaSure. The uterus was flipped once we reached the fundus of the mucosa was ligated using the LigaSure specimen was completely freed. We swept the bowel back with sponge sticks were the fallopian tubes were not visible through the epiploica. A modified Gomez culdoplasty was performed with the 0 Vicryl runner in a pursestring fashion the vaginal mucosa was sutured. the angle of the vaginal cuff was then with pickups and the vaginal cuff was closed with an 0 Vicryl runner. The anterior repair was then begun with an grasping the anterior vaginal mucosa in the midline between 2 Allis clamps and the mucosa was injected with approximately 10 cc of bupivacaine with epi. The mucosa was then scored in the midline using a 15 blade and the mucosa was dissected away from the bladder with sharp dissection with Metzenbaums and blunt dissection as needed. . Once the sacral bone was palpated and the uterosacral ligament was located via palpation the anchor anchor sure device was deployed in the anchor sure was fixed to the apex of the anterior repair. The anterior repair was then completed with 4 bridge sutures of 2-0 Vicryl placed the vesico- vaginal mucosa. cyst vaginal mucosa was then trimmed. The defect was then closed with an 0 Vicryl runner. The mucosa was then grasped approximately 1- 1/2 cm below the urethral opening, and once again injected with approximately 5 cc of bupivacaine with epi. The mucosa was then dissected away from the urethra using Metzenbaums once the pubic bone was palpable, the pubic bone on the mons was then palpated and to function roth with a 15 blade were performed. A Shameka sling trocar was then placed in each puncture justin and hugging the pubic bone the trocar was introduced through into the vagina through the previously made defect. Cystoscopy was performed once the Arzate catheter was removed, and it was noted that there was no evidence of of bladder injury on cystoscopy and there was no evidence of trocar puncture through the bladder. The Shameka sling material was then placed on the ends of the trochars and the trochars were removed with gentle pressure through the previously made tract. The mesh was then trimmed just below the skin with a Chela clamp in place between the urethra and the mesh to ensure that there was no strangulation of the urethra. The vaginal mucosa was then closed using 2-0 Vicryl. the vagina was then inspected and Kerlix packing with Premarin cream on the end was placed within the vagina. Procedures were then concluded. All instruments were removed, patient was taken to recovery in stable condition sponge lap and needle counts were correct x2
[2020-05-28] MEDS ORDERED: CEFTRIAXONE 1 GM/D5W RTU 1 GM/50 ML RTUPB IV PRN (14:34)
[2020-05-28] MEDS: KETOROLAC TROMETHAMINE INJ/PF 30 MG/1 ML SDV IV SCH ×2 (15:00→21:24)
[2020-05-28] MEDS: HYDROXYZINE PAMOATE 25 MG CAPSULE PO SCH ×2 (15:00→18:08)
[2020-05-28] MEDS ORDERED: GLYCOPYRROLATE 1 MG/5 ML VIAL ONE (15:57)
[2020-05-28] MEDS ORDERED: KETOROLAC TROMETHAMINE 60 MG/2 ML SDV ONE (15:57)
[2020-05-28] MEDS ORDERED: NEOSTIGMINE METHYLSULFATE 10 MG/10 ML VIAL ONE (15:57)
[2020-05-28] MEDS ORDERED: BENZTROPINE MESYLATE 2 MG PO SCH (18:00)
[2020-05-28] MEDS ORDERED: TOPIRAMATE 25 MG TABLET PO SCH (18:00)
[2020-05-28] MEDS ORDERED: TOPIRAMATE 50 MG PO SCH (18:00)
[2020-05-28] MEDS ORDERED: DOCUSATE SODIUM 100 MG CAPSULE PO SCH (18:00)
[2020-05-28] MEDS ORDERED: BENZTROPINE MESYLATE 1 MG TABLET PO SCH (18:00)
[2020-05-28] MEDS ORDERED: FLUOXETINE HCL 20 MG CAPSULE PO SCH (18:00)
[2020-05-28] MEDS: IBUPROFEN 800 MG TABLET PO SCH ×2 (18:07→18:12)
[2020-05-28] MEDS ORDERED: RISPERIDONE 1 MG TABLET PO SCH (22:00)
[2020-05-28] MEDS ORDERED: RISPERIDONE 3 MG PO SCH (22:00)
[2020-05-29] MEDS ORDERED: LEVOTHYROXINE SODIUM 0.088 MG TABLET PO SCH (06:00)
[2020-05-29] MEDS ORDERED: PANTOPRAZOLE SODIUM 20 MG TABLET.DR PO SCH (06:00)
[2020-05-29 06:25] LABS: HEMATOCRIT 37.1 % (36.0-47.0); HEMOGLOBIN 12.1 g/dL (12.0-15.5); MEAN CORPUSCULAR HEMOGLOBIN 28.6 pg (27.0-33.4); MEAN CORPUSCULAR HGB CONC 32.6 g/dL (32.0-36.0); MEAN CORPUSCULAR VOLUME 88 fl (80-97); PLATELET COUNT 354 10^3/uL (150-450); RED BLOOD COUNT 4.23 10^6/uL (3.72-5.28); RED CELL DISTRIBUTION WIDTH 13.7 % (11.5-14.0); WHITE BLOOD COUNT 14.1 10^3/uL (4.0-10.5)
[2020-05-29] MEDS: KETOROLAC TROMETHAMINE INJ/PF 30 MG/1 ML SDV IV SCH (06:50)
[2020-05-29] MEDS: IBUPROFEN 800 MG TABLET PO SCH (06:51)
[2020-05-29] MEDS ORDERED: INFLUENZA QUAD (6MOS+) 2020-21 VAC 0.5 ML SYR IM ONE (08:00)
--- NOTE | 2020-05-29 08:04 | PDOC DISCHARGE SUMMARY ---
Impression - Admit/DC Date/PCP Admission Date/Primary Care Provider: MENDY YOUSSEF PA-C Discharge Date: 05/29/20 - Discharge Diagnosis (1) Uterovaginal prolapse, complete Is this a current diagnosis for this admission?: Yes (2) RADHA (stress urinary incontinence, female) Is this a current diagnosis for this admission?: Yes (3) Pelvic pain Is this a current diagnosis for this admission?: Yes - Assessment Summary: patient underwent TVH w/ USS Anterior repair and placement of Shameka sling. Has had an unremarkable postoperative course and is voiding without difficulty this AM. Ready for discharge home - Additional Information Resuscitation Status: Full Code Discharge Diet: As Tolerated Discharge Activity: Balance Activity w/Rest, No Lifting Over 10 Pounds, No Lifting/Push/Pulling, Pelvic Rest, No tub bath, Walk Frequently Referrals: MADIE CUNHA MD [ACTIVE STAFF] - 06/12/20 8:30 am (CALL THE OFFICE OF ANY QUESTIONS AND CONCERNS.) Prescriptions: Docusate Sodium [Colace 100 mg Capsule] 100 mg PO BID #60 capsule Ibuprofen [Motrin 800 mg Tablet] 800 mg PO Q8H #60 tablet Home Medications: Omeprazole [Prilosec] 20 mg PO DAILY 04/22/11 Topiramate [Topamax] 50 mg PO BID 30 Days #60 tablet 10/13/17 Albuterol Sulfate [Proair Hfa Inhalation Aerosol 8.5 gm Mdi] 2 puff IH Q4H PRN 05/28/20 Benztropine Mesylate [Cogentin 1 mg Tablet] 1 mg PO QID 05/28/20 Buspirone HCl [Buspar 10 mg Tablet] 10 mg PO TID 05/28/20 Fluoxetine HCl 10 mg PO DAILY 05/28/20 Hydrocodone/Acetaminophen [Zuni 10-325 mg Tablet] 1 tab PO QID 05/28/20 Hydroxyzine Pamoate [Vistaril 50 mg Capsule] 50 mg PO TID 05/28/20 Lamotrigine [Lamictal] 150 mg PO DAILY 05/28/20 Liothyronine Sodium [Cytomel] 5 mcg PO DAILY 05/28/20 Metoprolol Tartrate [Lopressor 25 mg Tablet] 25 mg PO BID 05/28/20 Mirtazapine 45 mg PO DAILY 05/28/20 Paliperidone [Invega 6 Mg Tab.Er] 6 mg PO BID 05/28/20 Risperidone [Risperdal 1 mg Tablet] 1 mg PO BID 05/28/20 Docusate Sodium [Colace 100 mg Capsule] 100 mg PO BID #60 capsule 05/29/20 Ibuprofen [Motrin 800 mg Tablet] 800 mg PO Q8H #60 tablet 05/29/20 Oxycodone HCl/Acetaminophen [Percocet 5-325 mg Tablet] 1 tab PO Q4HP PRN tablet 05/29/20 History of Present Illiness History of Present Illness: ALEXANDRA MAIN is a 45 year old female Physical Exam - Physical Exam Vital Signs: Temp Pulse Resp BP Pulse Ox 97.9 F 110 H 16 133/84 H 96 05/29/20 05:13 05/29/20 05:13 05/29/20 05:13 05/29/20 05:13 05/29/20 05:13 Intake & Output 05/28/20 05/29/20 05/30/20 06:59 06:59 06:59 Intake Total 2070 Output Total 1325 Balance 745 Weight 81 kg Results Laboratory Results: WBC 14.1 10^3/uL (4.0-10.5) H 05/29/20 06:00 RBC 4.23 10^6/uL (3.72-5.28) 05/29/20 06:00 Hgb 12.1 g/dL (12.0-15.5) 05/29/20 06:00 Hct 37.1 % (36.0-47.0) 05/29/20 06:00 MCV 88 fl (80-97) 05/29/20 06:00 MCH 28.6 pg (27.0-33.4) 05/29/20 06:00 MCHC 32.6 g/dL (32.0-36.0) 05/29/20 06:00 RDW 13.7 % (11.5-14.0) 05/29/20 06:00 Plt Count 354 10^3/uL (150-450) 05/29/20 06:00 Sodium 139.3 mmol/L (137-145) 05/25/20 12:13 Potassium 4.4 mmol/L (3.6-5.0) 05/25/20 12:13 Chloride 105 mmol/L (98-107) 05/25/20 12:13 Carbon Dioxide 24 mmol/L (22-30) 05/25/20 12:13 Anion Gap 10 (5-19) 05/25/20 12:13 BUN 8 mg/dL (7-20) 05/25/20 12:13 Creatinine 0.74 mg/dL (0.52-1.25) 05/25/20 12:13 Est GFR ( Amer) > 60 (>60) 05/25/20 12:13 Est GFR (MDRD) Non-Af > 60 (>60) 05/25/20 12:13 Glucose 113 mg/dL (75-110) H 05/25/20 12:13 Calcium 10.4 mg/dL (8.4-10.2) H 05/25/20 12:13 Total Bilirubin 0.5 mg/dL (0.2-1.3) 05/25/20 12:13 Direct Bilirubin 0.2 mg/dL (0.0-0.4) 05/25/20 12:13 Neonat Total Bilirubin Not Reportable 05/25/20 12:13 Neonat Direct Bilirubin Not Reportable 05/25/20 12:13 Neonat Indirect Bili Not Reportable 05/25/20 12:13 AST 16 U/L (14-36) 05/25/20 12:13 ALT 12 U/L (<35) 05/25/20 12:13 Alkaline Phosphatase 106 U/L (38-126) 05/25/20 12:13 Total Protein 7.7 g/dL (6.3-8.2) 05/25/20 12:13 Albumin 4.3 g/dL (3.5-5.0) 05/25/20 12:13 Urine Color YELLOW 05/25/20 12:24 Urine Appearance SLIGHTLY-CLOUDY 05/25/20 12:24 Urine pH 6.0 (5.0-9.0) 05/25/20 12:24 Ur Specific [place] 1.009 05/25/20 12:24 Urine Protein NEGATIVE mg/dL (NEGATIVE) 05/25/20 12:24 Urine Glucose (UA) NEGATIVE mg/dL (NEGATIVE) 05/25/20 12:24 Urine Ketones NEGATIVE mg/dL (NEGATIVE) 05/25/20 12:24 Urine Blood SMALL (NEGATIVE) H 05/25/20 12:24 Urine Nitrite POSITIVE (NEGATIVE) H 05/25/20 12:24 Urine Bilirubin NEGATIVE (NEGATIVE) 05/25/20 12:24 Urine Urobilinogen NEGATIVE mg/dL (<2.0) 05/25/20 12:24 Ur Leukocyte Esterase LARGE (NEGATIVE) H 05/25/20 12:24 Urine WBC (Auto) 31 /HPF 05/25/20 12:24 Urine RBC (Auto) 1 /HPF 05/25/20 12:24 U Hyaline Cast (Auto) 13 /LPF 05/25/20 12:24 Urine Bacteria (Auto) 3+ /HPF 05/25/20 12:24 Urine WBC Clumps FEW /HPF 05/25/20 12:24 Squamous Epi Cells Auto 3 /HPF 05/25/20 12:24 Urine Mucus (Auto) OCC /LPF 05/25/20 12:24 Urine Ascorbic Acid NEGATIVE (NEGATIVE) 05/25/20 12:24 Urine HCG, Qual NEGATIVE (NEGATIVE) 05/28/20 08:20 COVID-19 Source See comment 05/25/20 12:05 COVID-19 (LUCIEN) Not Detected (Not Detect) 05/25/20 12:05 Blood Type A NEGATIVE 05/25/20 12:13 Antibody Screen NEGATIVE 05/25/20 12:13 Impressions: Chest X-Ray 05/26/20 11:20 IMPRESSION: NO ACUTE RADIOGRAPHIC FINDING IN THE CHEST. Stroke Is this a Stroke Patient?: No Acute Heart Failure Is this a Heart Failure Patient?: No
[2020-05-29 08:16] VITALS: BP 145/87
[2020-05-29] MEDS ORDERED: LAMOTRIGINE 100 MG TABLET PO SCH (10:00)
[2020-05-29] MEDS ORDERED: OMEPRAZOLE 20 MG PO SCH (10:00)
[2020-05-29] MEDS ORDERED: PALIPERIDONE 9 MG PO SCH (10:00)
[2020-05-29] MEDS ORDERED: PALIPERIDONE 6 MG TAB.ER.24 PO SCH (10:00)
== END 2020-05-29 08:38 | disposition home or self-care (01) ==
LOC: OROUT 07:43 → 2N 13:55 → OROUT 05-29 08:38
PROVIDERS: ATTEND Obstetrics & Gynecology
DX: N81.3 Complete uterovaginal prolapse (principal); N39.3 Stress incontinence (female) (male); R10.2 Pelvic and perineal pain; N87.0 Mild cervical dysplasia; N72 Inflammatory disease of cervix uteri; N80.0 Endometriosis of uterus; J45.909 Unspecified asthma, uncomplicated; Z20.828 Contact with and (suspected) exposure to other viral communicable diseases; Z23 Encounter for immunization; E03.9 Hypothyroidism, unspecified; K21.9 Gastro-esophageal reflux disease without esophagitis; Z79.899 Other long term (current) drug therapy; Z98.51 Tubal ligation status; Z78.0 Asymptomatic menopausal state; Z79.890 Hormone replacement therapy; F17.210 Nicotine dependence, cigarettes, uncomplicated
CPT/HCPCS: 57283; 57240; 57288; 58260; 93005; 86900; 86901; 36415 ×2; 87086; 86850; 85027 ×2; 81025; 87088; 80053; 81001; 87186; 88307 ×2; 71046; 90686; 94799; 93010; 00944; G0008; C1758; C1781; U0003; J2250; A9270 ×9; J3490 ×3; J0690; J1100; J1885 ×3; J3010; J2710; J1170; J2405; J2704; C9803; 87635; 90471; 944

== ENCOUNTER 2020-07-04 17:04 | Emergency (ER) | payer MEDICARE, MEDICAID ==
--- NOTE | 2020-07-04 17:46 | ER Document Report ---
ED Medical Screen (RME) - General Chief Complaint: Other Stated Complaint: PROLAPSED BLADDER Time Seen by Provider: 07/04/20 17:32 Primary Care Provider: MENDY YOUSSEF PA-C [Primary Care Provider] - Follow up as needed TRAVEL OUTSIDE OF THE [place] IN LAST 30 DAYS: No - HPI Notes: Patient is a 45 y/o female who presents with vaginal pain and bleeding. Patient states she was diagnosed with bladder and uterine prolapse and had a total hysterectomy with bladder sling done on 05/28/2020. Patient states yesterday she began to experience vaginal bleeding and pain. She reports being able to feel a bulging mass in her vagina and believes her bladder may have re-prolapsed. - Related Data Allergies/Adverse Reactions: latex [Latex] Allergy (Unknown, Verified 05/28/20 08:22) Home Medications: Metoprolol. Benztropine. Risperidone. Liothyronine Past Medical History - Social History Chew tobacco use (# tins/day): No Frequency of alcohol use: None Drug Abuse: None Family history: Reviewed & Not Pertinent - Past Medical History Cardiac Medical History: Reports: Hx Hypercholesterolemia Denies: Hx Coronary Artery Disease, Hx Heart Attack, Hx Hypertension Pulmonary Medical History: Denies: Hx Asthma, Hx Bronchitis, Hx COPD, Hx Pneumonia Neurological Medical History: Reports: Hx Migraine, Hx Seizures. Denies: Hx Cerebrovascular Accident Renal/ Medical History: Denies: Hx Peritoneal Dialysis GI Medical History: Reports: Hx Gastroesophageal Reflux Disease Musculoskeltal Medical History: Denies Hx Arthritis, Reports Hx Fibromyalgia Psychiatric Medical History: Reports: Hx Anxiety, Hx Bipolar Disorder, Hx Depression, Hx Schizophrenia Past Surgical History: Reports: Hx Orthopedic Surgery - FX L ANKLE X2, L WRIST, ALMOST EVERY FINGER pain, Hx Tubal Ligation - Immunizations Hx Diphtheria, Pertussis, Tetanus Vaccination: Yes Physical Exam - Vital signs Vitals: Temp Pulse Resp BP Pulse Ox 98.1 F 94 18 118/75 97 07/04/20 17:11 07/04/20 17:11 07/04/20 17:11 07/04/20 17:11 07/04/20 17:11 Interpretation: Normal - General General appearance: Appears well - Abdominal Distension: No distension Tenderness: Tender Course - Re-evaluation Re-evalutation: 07/04/20 17:[address] Roy, [facility] on-call, concerning this patient. She recommends ordering a CBC, CMP and performing a sterile speculum exam. Dr. Roy agrees to see the patient once she is in a room. I have greeted and performed a rapid initial assessment of this patient. A comprehensive ED assessment and evaluation of the patient, analysis of test results and completion of medical decision making process will be conducted by an additional ED providers. - Vital Signs Vital signs: Temp Pulse Resp BP Pulse Ox 98.1 F 94 18 118/75 97 07/04/20 17:11 07/04/20 17:11 07/04/20 17:11 07/04/20 17:11 07/04/20 17:11 Doctor's Discharge - Discharge Referrals: MENDY YOUSSEF PA-C [Primary Care Provider] - Follow up as needed
[2020-07-04] MEDS ORDERED: OXYCODONE HCL IR 5 MG TABLET PO ONE (17:53)
[2020-07-04 18:18] LABS: APPEARANCE,URINE SLIGHTLY-CLOUDY; BILIRUBIN,URINE NEGATIVE (NEGATIVE); COLOR,URINE YELLOW; GLUCOSE, URINE NEGATIVE (NEGATIVE); KETONES,URINE NEGATIVE (NEGATIVE); LEUKOCYTE ESTERASE,URINE LARGE (NEGATIVE); NITRITE,URINE NEGATIVE (NEGATIVE); PROTEIN,URINE NEGATIVE (NEGATIVE); URINE SPECIFIC GRAVITY 1.006; UROBILINOGEN,URINE NEGATIVE mg/dL (<2.0)
[2020-07-04 18:20] LABS: ABSOLUTE BASOPHILS # (AUTO) 0.1 10^3/uL (0.0-0.2); ABSOLUTE EOSINOPHILS # (AUTO) 0.3 10^3/uL (0.0-0.6); ABSOLUTE MONOCYTES (AUTO) 0.6 10^3/uL (0.1-1.4); ABSOLUTE NEUT (AUTO) 4.8 10^3/uL (1.7-8.2); BASOPHILS % (AUTO) 0.8 % (0-2); EOSINOPHILS % (AUTO) 3.2 % (0-6); HEMATOCRIT 36.9 % (36.0-47.0); HEMOGLOBIN 12.6 g/dL (12.0-15.5); LYMPHOCYTES % (AUTO) 33.9 % (13-45); MEAN CORPUSCULAR HEMOGLOBIN 29.6 pg (27.0-33.4); MEAN CORPUSCULAR HGB CONC 34.2 g/dL (32.0-36.0); MEAN CORPUSCULAR VOLUME 87 fl (80-97); MONOCYTES % (AUTO) 6.6 % (3-13); PLATELET COUNT 281 10^3/uL (150-450); RED BLOOD COUNT 4.25 10^6/uL (3.72-5.28); RED CELL DISTRIBUTION WIDTH 14.8 % (11.5-14.0); SEGMENTED NEUTROPHILS % (AUTO) 55.5 % (42-78); TOTAL CELLS COUNTED % (AUTO) 100 %; WHITE BLOOD COUNT 8.7 10^3/uL (4.0-10.5)
[2020-07-04 18:35] LABS: ALBUMIN 3.8 g/dL (3.5-5.0); ALKALINE PHOSPHATASE 97 U/L (38-126); ASPARTATE AMINO TRANSFERASE 23 U/L (14-36); BILIRUBIN,DIRECT 0.2 mg/dL (0.0-0.4); BILIRUBIN,TOTAL 0.3 mg/dL (0.2-1.3); BLOOD UREA NITROGEN 6 mg/dL (7-20); CALCIUM 9.2 mg/dL (8.4-10.2); GLUCOSE 100 mg/dL (75-110); POTASSIUM 3.8 mmol/L (3.6-5.0); TOTAL PROTEIN 6.4 g/dL (6.3-8.2)
[2020-07-04 18:40] LABS: CARBON DIOXIDE 29 mmol/L (22-30); CHLORIDE 105 mmol/L (98-107)
[2020-07-04 18:41] LABS: ANION GAP 3 (5-19)
--- NOTE | 2020-07-04 20:31 | ER Document Report ---
ED GI/ - General Chief Complaint: Other Stated Complaint: PROLAPSED BLADDER Time Seen by Provider: 07/04/20 17:32 Primary Care Provider: MADIE CUNHA MD [ACTIVE STAFF] - Follow up in 3-5 days (Please call next week for an outpatient follow-up appointment.) MENDY YOUSSEF PA-C [Primary Care Provider] - Follow up as needed Mode of Arrival: Ambulatory Information source: Patient Notes: 45-year-old female past medical history significant for hypertension recent hysterectomy with bladder sling on May [address] Cunha. Patient states she started having vaginal bleeding and pain yesterday and felt a "bulge" in her vagina. States has pain medication at home but did not take any. Denies any nausea, vomiting, no COVID-19 exposure. States she did not follow-up with her [facility] after her surgery. Also states she lifted a heavy case of water a week ago. TRAVEL OUTSIDE OF THE [place] IN LAST 30 DAYS: No - Related Data Allergies/Adverse Reactions: latex [Latex] Allergy (Unknown, Verified 05/28/20 08:22) Home Medications: Metoprolol. Benztropine. Risperidone. Liothyronine Past Medical History - General Information source: Patient - Social History Smoking Status: Current Every Day Smoker Chew tobacco use (# tins/day): No Frequency of alcohol use: None Drug Abuse: None Family History: Reviewed & Not Pertinent Patient has homicidal ideation: No - Past Medical History Cardiac Medical History: Reports: Hx Hypercholesterolemia Denies: Hx Coronary Artery Disease, Hx Heart Attack, Hx Hypertension Pulmonary Medical History: Denies: Hx Asthma, Hx Bronchitis, Hx COPD, Hx Pneumonia Neurological Medical History: Reports: Hx Migraine, Hx Seizures. Denies: Hx Cerebrovascular Accident Renal/ Medical History: Denies: Hx Peritoneal Dialysis GI Medical History: Reports: Hx Gastroesophageal Reflux Disease Musculoskeletal Medical History: Denies Hx Arthritis, Reports Hx Fibromyalgia Psychiatric Medical History: Reports: Hx Anxiety, Hx Bipolar Disorder, Hx Depression, Hx Schizophrenia Past Surgical History: Reports: Hx Orthopedic Surgery - FX L ANKLE X2, L WRIST, ALMOST EVERY FINGER pain, Hx Tubal Ligation - Immunizations Hx Diphtheria, Pertussis, Tetanus Vaccination: Yes Review of Systems - Review of Systems Constitutional: No symptoms reported EENT: No symptoms reported Cardiovascular: No symptoms reported Respiratory: No symptoms reported Gastrointestinal: No symptoms reported Genitourinary: Hematuria Female Genitourinary: Vaginal bleeding, Other - Vaginal pain Musculoskeletal: No symptoms reported Skin: No symptoms reported Neurological/Psychological: No symptoms reported -: Yes All other systems reviewed and negative Physical Exam - Vital signs Vitals: Temp Pulse Resp BP Pulse Ox 98.1 F 94 18 118/75 97 07/04/20 17:11 07/04/20 17:11 07/04/20 17:11 07/04/20 17:11 07/04/20 17:11 - General General appearance: Appears well, Alert In distress: Mild - Respiratory Respiratory status: No respiratory distress Chest status: Nontender Breath sounds: Normal Chest palpation: Normal - Cardiovascular Rhythm: Regular Heart sounds: Normal auscultation Murmur: No - Abdominal Inspection: Normal Distension: No distension Bowel sounds: Normal Tenderness: Nontender Organomegaly: No organomegaly - Genitourinary Notes: Please see the Dr. Roy's note concerning the pelvic exam - Back Back: Normal, Nontender - Neurological Neuro grossly intact: Yes Cognition: Normal Orientation: AAOx4 Leslie Coma Scale Eye Opening: Spontaneous Leslie Coma Scale Verbal: Oriented Leslie Coma Scale Motor: Obeys Commands Leslie Coma Scale Total: 15 Speech: Normal Motor strength normal: LUE, RUE, LLE, RLE Sensory: Normal Course - Re-evaluation Re-evalutation: 07/04/20 20:40 Patient was seen and evaluated by [facility] Dr. Roy please review her note for full documentation of her visit. Spoke with Dr. Roy who would like patient to get 1 dose of Cipro 250 mg p.o. prior to discharge. She will need follow-up [address]unha. [address]. Roy sent the prescription for Cipro to the patient's pharmacy. Patient has pain medication at home. Patient was given strict return to the emergency room guidelines. Return for any new or worsening symptoms. All questions were answered. Patient verbalized understanding and agrees with plan of care. - Vital Signs Vital signs: Temp Pulse Resp BP Pulse Ox 98.1 F 83 18 113/82 100 07/04/20 17:11 07/04/20 20:40 07/04/20 20:40 07/04/20 20:40 07/04/20 20:40 - Laboratory Results Result Diagrams: 07/04/20 18:00 01/09/21 18:00 Laboratory Results Interpreted: 07/04/20 07/04/20 07/04/20 17:50 18:00 18:00 RDW 14.8 H Anion Gap 3 L BUN 6 L Urine Blood SMALL H Ur Leukocyte Esterase LARGE H Critical Laboratory Results Reviewed: No Critical Results - Radiology Results Critical Radiology Results Reviewed: No Critical Results Discharge - Discharge Clinical Impression: Midline cystocele UTI (urinary tract infection) Qualifiers: Urinary tract infection type: acute cystitis Hematuria presence: with hematuria Qualified Code(s): N30.01 - Acute cystitis with hematuria Condition: Stable Disposition: HOME, SELF-CARE Instructions: Urinary Tract Infection ([facility]) Additional Instructions: Drink plenty of fluids Take all antibiotics Continue premarin cream Follow up with Dr Cunha this week Prescriptions: Ciprofloxacin HCl 250 mg PO Q12 5 Days #10 tablet Referrals: MEDNY YOUSSEF PA-C [Primary Care Provider] - Follow up as needed MADIE CUNHA MD [ACTIVE STAFF] - Follow up in 3-5 days (Please call next week for an outpatient follow-up appointment.)
[2020-07-04] MEDS ORDERED: CIPROFLOXACIN HCL 500 MG TABLET PO ONE (20:37)
--- NOTE | 2020-07-04 20:37 | PDOC CONSULTATION ---
Consultation Consult Date: 07/04/20 Attending physician:: VICENTA ROY Provider Consulted: ANDERSON NGUYEN Consult reason:: 4 weeks post hysterectomy and cystocele repair: pelvic pain, vaginal bulge History of Present Illness Admission Date/PCP: MENDY YOUSSEF PA-C History of Present Illness: ALEXANDRA MAIN is a 45 year old female who is 4 wks s/p hysterectomy w/ anterior repair with sling placement who has presented to the ED tonight d/t pelvic pain, vaginal spotting and a bulge in vagina. This started yesterday. When she went to restroom she noted small amount of bleeding and felt a bulge when she wiped. Bleeding almost gone today. Still with pain/pressure and bulge in vagina. Denies intercourse. She did forget restrictions and lifted a case of water in last wee k. She is a smoker. She is not diabetic. She denies cough, n/v, f/c. She does endorse dysuria Past Medical History Cardiac Medical History: Reports: Hyperlipidema Denies: Coronary Artery Disease, Myocardial Infarction, Hypertension Pulmonary Medical History: Denies: Asthma, Bronchitis, Chronic Obstructive Pulmonary Disease (COPD), Pneumonia Neurological Medical History: Reports: Migraine, Seizures GI Medical History: Reports: Gastroesophageal Reflux Disease Musculoskeltal Medical History: Reports: Fibromyalgia Denies: Arthritis Psychiatric Medical History: Reports: Bipolar Disorder, Depression Social History Smoking Status: Current Every Day Smoker Electronic Cigarette use?: No Family History Family History: Reviewed & Not Pertinent Parental Family History Reviewed: Yes Children Family History Reviewed: Yes Sibling(s) Family History Reviewed.: Yes Medication/Allergy Home Medications: Omeprazole [Prilosec 20 mg Capsule] 20 mg PO DAILY 04/22/11 Topiramate [Topamax] 50 mg PO BID 30 Days #60 tablet 10/13/17 Albuterol Sulfate [Proair HFA Inhalation Aerosol 8.5 gm MDI] 2 puff IH Q4H PRN 05/28/20 Benztropine Mesylate [Cogentin 1 mg Tablet] 1 mg PO QID 05/28/20 Buspirone HCl [Buspar 10 mg Tablet] 10 mg PO TID 05/28/20 Fluoxetine HCl 10 mg PO DAILY 05/28/20 Hydrocodone/Acetaminophen [Chelsea 10-325 mg Tablet] 1 tab PO QID 05/28/20 Hydroxyzine Pamoate [Vistaril 50 mg Capsule] 50 mg PO TID 05/28/20 Lamotrigine [Lamictal] 150 mg PO DAILY 05/28/20 Liothyronine Sodium [Cytomel] 5 mcg PO DAILY 05/28/20 Metoprolol Tartrate [Lopressor 25 mg Tablet] 25 mg PO BID 05/28/20 Mirtazapine 45 mg PO DAILY 05/28/20 Paliperidone [Invega 6 mg Tab.er] 6 mg PO BID 05/28/20 Risperidone [Risperdal 1 mg Tablet] 1 mg PO BID 05/28/20 Docusate Sodium [Colace 100 mg Capsule] 100 mg PO BID #60 capsule 05/29/20 Ibuprofen [Motrin 800 mg Tablet] 800 mg PO Q8H #60 tablet 05/29/20 Oxycodone HCl/Acetaminophen [Percocet 5-325 mg Tablet] 1 tab PO Q4HP PRN tablet 05/29/20 Ciprofloxacin HCl 250 mg PO Q12 5 Days #10 tablet 07/04/20 Allergies/Adverse Reactions: latex [Latex] Allergy (Unknown, Verified 05/28/20 08:22) Review of Systems Constitutional: ABSENT: chills, fever(s), headache(s), weight gain, weight loss Cardiovascular: ABSENT: chest pain, dyspnea on exertion, edema, orthropnea, palpitations Respiratory: ABSENT: cough, hemoptysis Gastrointestinal: ABSENT: abdominal pain - pelvic pressure, constipation, diarrhea, hematemesis, hematochezia, nausea, vomiting Genitourinary: PRESENT: dysuria Neurological: ABSENT: abnormal gait, abnormal speech, confusion, dizziness, focal weakness, syncope Psychiatric: ABSENT: anxiety, depression, homidical ideation, suicidal ideation Physical Exam - Physical Exam Vital Signs: Temp Pulse Resp BP Pulse Ox 98.1 F 94 18 118/75 97 07/04/20 17:11 07/04/20 17:11 07/04/20 17:11 07/04/20 17:11 07/04/20 17:11 Intake & Output 07/03/20 07/04/20 07/05/20 06:59 06:59 06:59 Weight 80.6 kg General appearance: PRESENT: no acute distress, cooperative Respiratory exam: PRESENT: clear to auscultation michael Cardiovascular exam: PRESENT: RRR, +S1, +S2 GI/Abdominal exam: PRESENT: normal bowel sounds, soft - non tender. Neurological exam: PRESENT: alert, awake, oriented to person, oriented to place, oriented to time, oriented to situation, CN II-XII grossly intact. ABSENT: motor sensory deficit Psychiatric exam: PRESENT: appropriate affect, normal mood. ABSENT: homicidal ideation, suicidal ideation - Gynecological Exam Labia: normal Urethra: normal Introitus: normal Perineum: normal Vagina: other - Vaginal vault without blood. there is pink mucosa and small amount of thin white vaginal discharge. Stitches noted at vaginal cuff and in area of cystocele repair. There is a recurrent cystocele present. It does not bulge out of the introitus . Tender on palpation anteriorly at bladder. Result Laboratory Results: 07/04/20 18:00 07/04/20 18:00 07/04/20 07/04/20 07/04/20 17:50 18:00 18:00 WBC 8.7 RBC 4.25 Hgb 12.6 Hct 36.9 MCV 87 MCH 29.6 MCHC 34.2 RDW 14.8 H Plt Count 281 Seg Neutrophils % 55.5 Sodium 137.3 Potassium 3.8 Chloride 105 Carbon Dioxide 29 Anion Gap 3 L BUN 6 L Creatinine 0.65 Est GFR ( Amer) > 60 Glucose 100 Calcium 9.2 Total Bilirubin 0.3 AST 23 Alkaline Phosphatase 97 Total Protein 6.4 Albumin 3.8 Urine Color YELLOW Urine Appearance SLIGHTLY-CLOUDY Urine pH 5.0 Ur Specific Minto 1.006 Urine Protein NEGATIVE Urine Glucose (UA) NEGATIVE Urine Ketones NEGATIVE Urine Blood SMALL H Urine Nitrite NEGATIVE Ur Leukocyte Esterase LARGE H Urine WBC (Auto) 11 Urine RBC (Auto) 5 Assessment & Plan - Diagnosis (1) Midline cystocele Is this a current diagnosis for this admission?: Yes (2) UTI (urinary tract infection) Qualifiers: Urinary tract infection type: acute cystitis (3) Pelvic pain Is this a current diagnosis for this admission?: Yes - Time Critical Time spent with patient: 15-24 minutes Anticipated Discharge Disposition: Home, Self Care Anticipated Discharge Timeframe: within 24 hours - Plan Summary Plan Summary: 45 yo who is 4 wks s/p hysterectomy with anterior repair and sling placement- presented for pelvic pain, bulge, dysruria and spotting -VSS, afebrile -Exam as above. Bladder tenderness and recurrent cystocele. INcisions in vagina intact. No dehiscence. -Labs with normal WBC, h/h and chem panel. UTI on dip. Urine culture ordered. Hx of ecoli UTI in May sensitive to cipro. Rx sent -d/c recurrent cystocele and intact suture. Recommend NO HEAVY LIFTING UNTIL seen by Dr. Cunha. Recommend No intercourse or anything in vagina for 8 wks or until she sees Dr. Cunha and advised otherwise. STOP smoking. Continue vaginal estrogen as prescribed FOLLOW UP WITH DR CUNHA WITH IN 1 week .
[2020-07-04 20:41] VITALS: BP 113/82
== END 2020-07-04 21:01 | disposition home or self-care (01) ==
LOC: ER 17:04
DX: N81.11 Cystocele, midline (principal); N30.01 Acute cystitis with hematuria; R10.2 Pelvic and perineal pain; N93.9 Abnormal uterine and vaginal bleeding, unspecified; I10 Essential (primary) hypertension; F17.200 Nicotine dependence, unspecified, uncomplicated; F41.9 Anxiety disorder, unspecified; F31.9 Bipolar disorder, unspecified; F20.9 Schizophrenia, unspecified; K21.9 Gastro-esophageal reflux disease without esophagitis; G43.909 Migraine, unspecified, not intractable, without status migrainosus; R56.9 Unspecified convulsions; Z90.710 Acquired absence of both cervix and uterus; Z79.899 Other long term (current) drug therapy; Z91.040 Latex allergy status; Z79.1 Long term (current) use of non-steroidal anti-inflammatories (NSAID)
CPT/HCPCS: 99283; 36415; 87086; 85025; 87088; 80053; 81001; 87186; A9270 ×2